=== PATIENT | male | born 1980 | race African-American/Black ===

== ENCOUNTER 2021-05-25 09:37 | Emergency (ER) | payer SELFPAY ==
[~2021-05-25] VITALS: Ht 175.2 cm; Wt 77.1 kg
== END 2021-05-25 14:16 | disposition home or self-care (01) ==
LOC: ED 09:37
DX: T40.691A Poisoning by other narcotics, accidental (unintentional), initial encounter (principal); F41.9 Anxiety disorder, unspecified; Y92.89 Other specified places as the place of occurrence of the external cause